=== PATIENT | male | born 1970 | race Caucasian/White ===

== ENCOUNTER → 2017-06-26 | Outpatient (CLI) | payer OTHER ==
[~2017-06-26] MED LIST: BISACODYL SUPP10 MG RECTAL; CUBICIN500 MG; DANTRIUM50 MG PO; INVANZ 1GM/NS 101 GM; OMEPRAZOLE 20 M20 M1; OXYBUTYNIN 5 MG5 M2 PO
== END ==
LOC: HYPER 06:44
DX: L89.153 Pressure ulcer of sacral region, stage 3 (principal); G82.20 Paraplegia, unspecified

== ENCOUNTER → 2017-07-10 | Outpatient (CLI) | payer OTHER | LOC: HYPER 07:05 | DX: L89.153 Pressure ulcer of sacral region, stage 3 (principal); G82.20 Paraplegia, unspecified; Z87.01 Personal history of pneumonia (recurrent) ==

== ENCOUNTER → 2017-08-07 | Outpatient (CLI) | payer OTHER | LOC: HYPER 06:58 | DX: L89.153 Pressure ulcer of sacral region, stage 3 (principal); G82.20 Paraplegia, unspecified; Z87.01 Personal history of pneumonia (recurrent) ==

== ENCOUNTER → 2017-09-04 | Outpatient (CLI) | payer OTHER | LOC: HYPER 06:45 | DX: L89.153 Pressure ulcer of sacral region, stage 3 (principal); G82.20 Paraplegia, unspecified; Z87.01 Personal history of pneumonia (recurrent) ==

== ENCOUNTER → 2017-09-19 | Outpatient (CLI) | payer OTHER | LOC: HYPER 07:03 | DX: L89.153 Pressure ulcer of sacral region, stage 3 (principal); G82.20 Paraplegia, unspecified; Z87.01 Personal history of pneumonia (recurrent) ==

== ENCOUNTER → 2017-11-04 | Outpatient (CLI) | payer OTHER | LOC: HYPER 07:18 | DX: L89.153 Pressure ulcer of sacral region, stage 3 (principal); G82.20 Paraplegia, unspecified; Z87.01 Personal history of pneumonia (recurrent) ==

== ENCOUNTER → 2017-12-02 | Outpatient (CLI) | payer OTHER | LOC: HYPER 06:56 | DX: L89.153 Pressure ulcer of sacral region, stage 3 (principal); G82.20 Paraplegia, unspecified ==

== ENCOUNTER → 2018-01-21 | Outpatient (CLI) | payer OTHER | LOC: HYPER 12-30 08:35 | DX: L89.153 Pressure ulcer of sacral region, stage 3 (principal); G82.20 Paraplegia, unspecified; Z87.01 Personal history of pneumonia (recurrent) ==

== ENCOUNTER → 2018-02-20 | Outpatient (CLI) | payer OTHER | LOC: HYPER 06:45 | DX: L89.153 Pressure ulcer of sacral region, stage 3 (principal); G82.20 Paraplegia, unspecified; Z87.01 Personal history of pneumonia (recurrent) ==

== ENCOUNTER → 2018-04-17 | Outpatient (CLI) | payer OTHER | LOC: HYPER 04-03 15:14 | DX: L89.153 Pressure ulcer of sacral region, stage 3 (principal); G82.20 Paraplegia, unspecified; K21.9 Gastro-esophageal reflux disease without esophagitis ==

== ENCOUNTER 2018-05-02 05:19 | Day surgery (SDC) | payer OTHER ==
[~2018-05-02] VITALS: Ht 182.9 cm; Wt 68.0 kg
[~2018-05-02 05:19] MED LIST changes: +ACCUNEB SO1.25 MG/1 INH; +AMOXIL 875 MG875 M1 PO; -OMEPRAZOLE 20 M20 M1; +OMEPRAZOLE 20 M20 M1 PO
--- NOTE | 2018-05-06 11:07 | PATH ---
[facility] [address] [place] [address] PATHOLOGY RPT PROCEDURE Name: SALAZAR ROCKWELL Room #: DEP [facility] M.R.#: [id number] ������������������ Admission: 05/02/18 ������������������ Date of : 74 Discharge: 05/02/18 Report #: [id number] Path Case #: [id number] [facility] Accession Number: [id number] . 01 Material submitted: . PART A: SACRAL TISSUE PART B: SACRAL BONE . 01 Clinical history: . Sacral wound. . 02 Diagnosis: A. 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 - Adjacent squamous epithelium showing reactive changes. . B. 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 (IUV:enrique; 05/05/2018) QMS/05/05/2018 . 02 Electronically signed: . Gabby U Vadlamani, MD, Pathologist NPI- [id number] . 01 Gross description: . A. Received in formalin labeled "Salazar Rockwell, sacral tissue" are two irregular fragments of fernandez-white skin and underlying tissue measuring 4.7 x 2.3 x 1.3 and 3.6 x 2.9 x 2.0 cm. The cut surfaces are pink-fernandez and fibrotic with focal hemorrhagic areas. Glass Blower Helper sections are submitted in cassette A1. . B. Received in formalin labeled "Salazar Rockwell, sacral bone" is a 0.6 x 0.6 x 0.3 cm fragment of fernandez-white soft tissue or softened bone. The specimen is submitted without sectioning or decalcification in cassette B1. ([facility] [place]; 05/02/2018) SY/SY . 02 Pathologist provided ICD-10: L98.429, M87.80, I96 . 02 CPT . 117763, 324521 Specimen Comment: A courtesy copy of this report has been sent to Specimen Comment: [phone], , . Specimen Comment: Report sent to ,DR SANTACRUZ / [place] [address] PATHOLOGY RPT PROCEDURE Name: SALAZAR ROCKWELL Room #: DEP [facility] Milka#: [id number] ������������������ Admission: 05/02/18 ������������������ Date of : 74 Discharge: 05/02/18 Report #: [id number] Path Case #: [id number] Specimen Comment: A duplicate report has been generated due to demographic updates. Performed at: [address], [place], [place] [id number] MD Jose Braxton MD Phone: [phone] Performed at: [address], [place], [place] [id number] MD Gabby Cisse MD Phone: [phone]
== END 2018-05-02 15:15 | disposition home or self-care (01) ==
LOC: OR 05:19 → TBA 05:19 → OR 10:57
DX: I96 Gangrene, not elsewhere classified (principal); L89.154 Pressure ulcer of sacral region, stage 4; M87.88 Other osteonecrosis, other site; K21.9 Gastro-esophageal reflux disease without esophagitis; Z98.890 Other specified postprocedural states; Z88.2 Allergy status to sulfonamides; Z88.8 Allergy status to other drugs, medicaments and biological substances
CPT/HCPCS: 50010; 50101; 50386; 50403; 57192; 62110; 62900; 70005

== ENCOUNTER → 2018-05-05 | Outpatient (CLI) | payer OTHER | LOC: HYPER 07:06 | DX: L89.153 Pressure ulcer of sacral region, stage 3 (principal); G82.20 Paraplegia, unspecified; K21.9 Gastro-esophageal reflux disease without esophagitis ==

== ENCOUNTER → 2018-05-19 | Outpatient (CLI) | payer OTHER | LOC: HYPER 07:02 | DX: L89.154 Pressure ulcer of sacral region, stage 4 (principal); G82.20 Paraplegia, unspecified; K21.9 Gastro-esophageal reflux disease without esophagitis ==

== ENCOUNTER → 2018-06-05 | Outpatient (CLI) | payer OTHER | LOC: HYPER 07:09 | DX: L89.154 Pressure ulcer of sacral region, stage 4 (principal); G82.20 Paraplegia, unspecified; K21.9 Gastro-esophageal reflux disease without esophagitis ==

== ENCOUNTER → 2018-06-26 | Outpatient (CLI) | payer OTHER | LOC: HYPER 06:47 | DX: L89.154 Pressure ulcer of sacral region, stage 4 (principal); G82.20 Paraplegia, unspecified; J18.9 Pneumonia, unspecified organism ==

== ENCOUNTER → 2018-07-17 | Outpatient (CLI) | payer OTHER | LOC: HYPER 06:52 | DX: L89.154 Pressure ulcer of sacral region, stage 4 (principal); G82.20 Paraplegia, unspecified; Z87.01 Personal history of pneumonia (recurrent) ==

== ENCOUNTER → 2018-08-21 | Outpatient (CLI) | payer OTHER | LOC: HYPER 06:31 | DX: L89.154 Pressure ulcer of sacral region, stage 4 (principal); G82.20 Paraplegia, unspecified; Z87.01 Personal history of pneumonia (recurrent) ==

== ENCOUNTER → 2018-09-04 | Outpatient (CLI) | payer OTHER | LOC: HYPER 07:03 | DX: L89.154 Pressure ulcer of sacral region, stage 4 (principal); G82.20 Paraplegia, unspecified; K21.9 Gastro-esophageal reflux disease without esophagitis ==

== ENCOUNTER → 2018-10-09 | Outpatient (CLI) | payer OTHER | LOC: HYPER 06:57 | DX: L89.154 Pressure ulcer of sacral region, stage 4 (principal); G82.20 Paraplegia, unspecified; K21.9 Gastro-esophageal reflux disease without esophagitis; Z90.49 Acquired absence of other specified parts of digestive tract ==

== ENCOUNTER → 2018-11-06 | Outpatient (CLI) | payer OTHER | LOC: HYPER 07:32 | DX: L89.154 Pressure ulcer of sacral region, stage 4 (principal); G82.20 Paraplegia, unspecified; Z87.01 Personal history of pneumonia (recurrent) ==

== ENCOUNTER → 2018-12-09 | Outpatient (CLI) | payer OTHER | LOC: HYPER 12:37 | DX: L89.154 Pressure ulcer of sacral region, stage 4 (principal); G82.20 Paraplegia, unspecified; Z87.01 Personal history of pneumonia (recurrent) ==

== ENCOUNTER → 2019-01-20 | Outpatient (CLI) | payer OTHER | LOC: HYPER 13:27 | DX: L89.154 Pressure ulcer of sacral region, stage 4 (principal); G82.20 Paraplegia, unspecified; Z87.01 Personal history of pneumonia (recurrent) ==

== ENCOUNTER → 2019-02-24 | Outpatient (CLI) | payer OTHER | LOC: HYPER 13:13 | DX: L89.154 Pressure ulcer of sacral region, stage 4 (principal); G82.20 Paraplegia, unspecified; K21.9 Gastro-esophageal reflux disease without esophagitis; H53.8 Other visual disturbances; H04.129 Dry eye syndrome of unspecified lacrimal gland; Z90.49 Acquired absence of other specified parts of digestive tract ==

== ENCOUNTER → 2019-04-14 | Outpatient (CLI) | payer OTHER | LOC: HYPER 08:18 | DX: L89.154 Pressure ulcer of sacral region, stage 4 (principal); G82.20 Paraplegia, unspecified; K21.9 Gastro-esophageal reflux disease without esophagitis; Z90.49 Acquired absence of other specified parts of digestive tract ==

== ENCOUNTER → 2019-07-21 | Outpatient (CLI) | payer OTHER | LOC: HYPER 14:08 | PROVIDERS: ATTEND Emergency Medicine | DX: L89.154 Pressure ulcer of sacral region, stage 4 (principal); G82.20 Paraplegia, unspecified; K21.9 Gastro-esophageal reflux disease without esophagitis; Z90.49 Acquired absence of other specified parts of digestive tract ==

== ENCOUNTER → 2019-09-01 | Outpatient (CLI) | payer OTHER | LOC: HYPER 14:02 | PROVIDERS: ATTEND Emergency Medicine | DX: L89.154 Pressure ulcer of sacral region, stage 4 (principal); L84 Corns and callosities; G82.20 Paraplegia, unspecified; K21.9 Gastro-esophageal reflux disease without esophagitis; Z90.49 Acquired absence of other specified parts of digestive tract ==

== ENCOUNTER → 2019-10-06 | Outpatient (CLI) | payer OTHER | LOC: HYPER 13:54 | PROVIDERS: ATTEND Emergency Medicine | DX: L89.154 Pressure ulcer of sacral region, stage 4 (principal); G82.20 Paraplegia, unspecified; K21.9 Gastro-esophageal reflux disease without esophagitis; Z90.49 Acquired absence of other specified parts of digestive tract ==

== ENCOUNTER → 2019-11-10 | Outpatient (CLI) | payer OTHER | LOC: HYPER 08:38 | PROVIDERS: ATTEND Emergency Medicine | DX: L89.154 Pressure ulcer of sacral region, stage 4 (principal); G82.20 Paraplegia, unspecified; Z86.14 Personal history of Methicillin resistant Staphylococcus aureus infection; Z90.49 Acquired absence of other specified parts of digestive tract; Z90.81 Acquired absence of spleen ==

== ENCOUNTER → 2019-12-23 | Outpatient (CLI) | payer OTHER | LOC: HYPER 15:36 | PROVIDERS: ATTEND Emergency Medicine | DX: L89.154 Pressure ulcer of sacral region, stage 4 (principal); G82.20 Paraplegia, unspecified; Z86.14 Personal history of Methicillin resistant Staphylococcus aureus infection; Z87.01 Personal history of pneumonia (recurrent); Z90.49 Acquired absence of other specified parts of digestive tract; Z90.81 Acquired absence of spleen ==

== ENCOUNTER → 2020-03-16 | Outpatient (CLI) | payer OTHER | LOC: HYPER 13:14 | PROVIDERS: ATTEND Emergency Medicine | DX: L89.154 Pressure ulcer of sacral region, stage 4 (principal); G82.20 Paraplegia, unspecified; K21.9 Gastro-esophageal reflux disease without esophagitis; Z90.49 Acquired absence of other specified parts of digestive tract ==

== ENCOUNTER → 2020-04-20 | Outpatient (CLI) | payer OTHER | LOC: HYPER 12:08 | PROVIDERS: ATTEND Emergency Medicine | DX: L89.154 Pressure ulcer of sacral region, stage 4 (principal); G82.20 Paraplegia, unspecified; K21.9 Gastro-esophageal reflux disease without esophagitis; Z90.49 Acquired absence of other specified parts of digestive tract ==

== ENCOUNTER → 2020-07-13 | Outpatient (CLI) | payer OTHER | LOC: HYPER 07:54 | PROVIDERS: ATTEND Emergency Medicine | DX: L89.154 Pressure ulcer of sacral region, stage 4 (principal); G82.20 Paraplegia, unspecified; K21.9 Gastro-esophageal reflux disease without esophagitis; Z90.49 Acquired absence of other specified parts of digestive tract ==

== ENCOUNTER → 2020-08-17 | Outpatient (CLI) | payer OTHER | LOC: HYPER 08:12 | PROVIDERS: ATTEND Emergency Medicine | DX: L89.154 Pressure ulcer of sacral region, stage 4 (principal); G82.20 Paraplegia, unspecified; K21.9 Gastro-esophageal reflux disease without esophagitis; Z90.49 Acquired absence of other specified parts of digestive tract; Z86.14 Personal history of Methicillin resistant Staphylococcus aureus infection ==

== ENCOUNTER → 2020-09-21 | Outpatient (CLI) | payer OTHER | LOC: HYPER 09:39 | PROVIDERS: ATTEND Emergency Medicine | DX: L89.154 Pressure ulcer of sacral region, stage 4 (principal); G82.20 Paraplegia, unspecified; Z86.14 Personal history of Methicillin resistant Staphylococcus aureus infection; Z87.01 Personal history of pneumonia (recurrent); Z90.49 Acquired absence of other specified parts of digestive tract; Z90.81 Acquired absence of spleen; Z98.890 Other specified postprocedural states; Z79.899 Other long term (current) drug therapy ==

== ENCOUNTER → 2020-10-19 | Outpatient (CLI) | payer OTHER | LOC: HYPER 07:57 | PROVIDERS: ATTEND Emergency Medicine | DX: L89.154 Pressure ulcer of sacral region, stage 4 (principal); L84 Corns and callosities; G82.20 Paraplegia, unspecified; K21.9 Gastro-esophageal reflux disease without esophagitis; Z86.14 Personal history of Methicillin resistant Staphylococcus aureus infection; Z87.01 Personal history of pneumonia (recurrent); Z90.49 Acquired absence of other specified parts of digestive tract; Z90.81 Acquired absence of spleen ==

== ENCOUNTER → 2020-11-30 | Outpatient (CLI) | payer OTHER | LOC: HYPER 08:31 | PROVIDERS: ATTEND Emergency Medicine | DX: L89.154 Pressure ulcer of sacral region, stage 4 (principal); L84 Corns and callosities; G82.20 Paraplegia, unspecified; K21.9 Gastro-esophageal reflux disease without esophagitis; Z86.14 Personal history of Methicillin resistant Staphylococcus aureus infection; Z87.01 Personal history of pneumonia (recurrent); Z90.49 Acquired absence of other specified parts of digestive tract; Z90.81 Acquired absence of spleen ==

== ENCOUNTER → 2021-01-18 | Outpatient (CLI) | payer OTHER | LOC: HYPER 13:07 | PROVIDERS: ATTEND Emergency Medicine | DX: L89.154 Pressure ulcer of sacral region, stage 4 (principal); G82.20 Paraplegia, unspecified; Z86.14 Personal history of Methicillin resistant Staphylococcus aureus infection; Z87.01 Personal history of pneumonia (recurrent); Z98.890 Other specified postprocedural states; Z79.899 Other long term (current) drug therapy; Z90.49 Acquired absence of other specified parts of digestive tract; Z90.81 Acquired absence of spleen ==

== ENCOUNTER → 2021-03-14 | Outpatient (CLI) | payer OTHER | LOC: HYPER 08:46 | PROVIDERS: ATTEND Emergency Medicine | DX: L89.154 Pressure ulcer of sacral region, stage 4 (principal); G82.20 Paraplegia, unspecified; Z86.14 Personal history of Methicillin resistant Staphylococcus aureus infection; Z87.01 Personal history of pneumonia (recurrent); Z79.899 Other long term (current) drug therapy; Z90.49 Acquired absence of other specified parts of digestive tract; Z90.81 Acquired absence of spleen; Z98.890 Other specified postprocedural states ==